=== PATIENT | female | born 1990 | race Caucasian/White ===

== ENCOUNTER 2025-01-02 19:36 | Emergency (ER) | payer MEDICAID, SELFPAY ==
[2025-01-02 19:38] VITALS: BP 125/93
[2025-01-02 20:47] VITALS: BMI 28.5
[2025-01-02 22:07] VITALS: BP 136/78
[2025-01-02] MEDS: MOTRIN 400 MG PO (23:04)
[2025-01-02 23:22] VITALS: BP 136/78
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
== END 2025-01-02 23:24 | disposition home or self-care (01) ==
LOC: EMR 19:36
PROVIDERS: EMERGENCY PHYSICIAN Emergency Medicine; FAMILY PHYSICIAN Nurse Practitioner Family
DX: S06.0X0A Concussion without loss of consciousness, initial encounter (principal); Y08.89XA Assault by other specified means, initial encounter; Y07.031 Male partner, former, perpetrator of maltreatment and neglect; F17.200 Nicotine dependence, unspecified, uncomplicated; Z63.79 Other stressful life events affecting family and household
CPT/HCPCS: 99284; 70450; 70486